=== PATIENT | female | born 1960 | race Caucasian/White ===

== ENCOUNTER 2021-09-09 08:39 | Emergency (ER) | payer BC ==
[2021-09-09] MEDS ORDERED: Sodium Chloride 0.9% 10 ML Syringe FLUSH PRN (09:08)
[2021-09-09] MEDS: Lactated Ringers 1,000 ML IV ONE (09:13)
[2021-09-09 09:34] LABS: CHLORIDE,CL 107 mmol/L (98-107); SODIUM,NA 142 mmol/L (136-145)
[2021-09-09 09:36] LABS: ANION GAP 11.6 mmol/L (5-15)
[2021-09-09 09:39] LABS: PTT,PARTIAL THROMBOPLSTIN TIME 26.8 SEC (20.5-30.9)
[2021-09-09] MEDS: Ondansetron 4 MG/2 ML SDV IVPUSH ONE (09:45)
== END 2021-09-09 11:00 | disposition home or self-care (01) ==
LOC: VM.ED 08:39
DX: K92.2 Gastrointestinal hemorrhage, unspecified (principal); Z79.82 Long term (current) use of aspirin
CPT/HCPCS: 36415; 80053; 83605; 83735; 84100; 85025; 85610; 85730; 86140; 87040; 96374; 99284; 99284-25; J2405; J7120